=== PATIENT | female | born 1945 | race Hispanic/Latino ===

== ENCOUNTER → 2018-08-22 | Day surgery (SDC) | payer MEDICARE ==
[2018-08-16 14:39] LABS: BASOPHILS % 0.4 % (0.0-1.0); EOSINOPHILS % 0.2 % (0.0-6.0); HEMATOCRIT 34.1 % (34.2-44.1); HEMOGLOBIN 10.8 g/dL (12.0-16.0); LYMPHOCYTES # (AUTO) 1.2 (1.0-3.2); LYMPHOCYTES % 21.4 % (18.0-39.1); MEAN CORPUSCULAR HEMOGLOBIN 30.6 pg (28-32); MEAN CORPUSCULAR HGB CONC 31.7 g/dL (31-35); MEAN CORPUSCULAR VOLUME 96.6 fL (81-99); MONOCYTES # (AUTO) 0.4 (0.2-0.8); MONOCYTES % 7.3 % (4.4-11.3); NEUTROPHILS % 70.3 % (38.7-80.0); PLATELET COUNT 271 x10e3/uL (140-360); RED BLOOD COUNT 3.53 x10e6/uL (3.6-5.1); RED CELL DISTRIBUTION WIDTH 13.4 % (11.7-14.4)
[~2018-08-22] MED LIST: ALIGN PO; ALIGN4 MG PO; ATORVASTATIN CA20 MG PO; FAMOTIDINE20 MG PO; FENTANYL CITRATE/PF 100MCG/2 ML INJ ONE; GLIMEPIRIDE2 MG PO; INVOKANA PO; JANUMET 50-1,01 EACH PO; LEVOTHYROXINE100 MC1 PO; LEVOTHYROXINE75 MCG PO; LISINOPRIL10 MG PO; METFORMIN HCL500 MG PO; METOPROLOL SUCC50 MG PO; OMEPRAZOLE40 MG PO; OXYBUTYNIN CHLOR5 MG PO; PANTOPRAZOLE SO40 MG PO; PROPOFOL IV EMULSION 10 MG/ML 50 ML VIAL ONE
--- OUTSIDE RECORDS SUMMARY | 2018-08-22 06:57 | XMS REPORT | Clinical Summary ---
Author Author Gregory Christian Organization [facility] Address Unknown Phone Unavailable Care Team Providers Care Precision Lens Technician Name Role Phone Roni Delgado MD PCP Allergies Comments Active Allergy Reactions Severity Noted Date dizziness Penicillins Other (See 04/05/2018 Comments) Medications End Date Status Medication Sig Dispensed Refills Start Date Active alendronate (FOSAMAX) 70 Take 70 mg by 0 MG tablet mouth every 7 days. Take in the morning with a full glass of water on an empty stomach, do NOT take anything else by mouth or lie down for the next 30 min. Take on tue or Active atorvastatin (LIPITOR) 40 Take 40 mg by 0 MG tablet mouth nightly. Active esomeprazole (NexIUM) 40 Take 40 mg by 0 MG capsule mouth nightly. Active famotidine (PEPCID) 40 MG Take 40 mg by 0 tablet mouth 2 (two) times a day. Active glimepiride (AMARYL) 4 MG Take 4 mg by 0 tablet mouth 2 (two) times a day. Active canagliflozin (INVOKANA) Take by mouth 0 100 mg tablet tablet daily before breakfast. Active sitaGLIPtin-metformin Take by mouth 0 (JANUMET XR) 50-1,000 mg 2 (two) times tablet, ER multiphase 24 a day. hr Active levothyroxine (SYNTHROID, Take 75 mcg 0 LEVOXYL) 75 mcg tablet by mouth every morning. Active lisinopril Take 10 mg by 0 (PRINIVIL,ZESTRIL) 10 mg mouth daily. tablet Active metoprolol tartrate Take 50 mg by 0 (LOPRESSOR) 50 mg tablet mouth 2 (two) times a day. Active oxybutynin XL Take 10 mg by 0 (DITROPAN-XL) 10 MG 24 hr mouth daily. tablet Active Bifidobacterium infantis Take by mouth 0 (ALIGN ORAL) daily. 05/05/2018 HYDROcodone-acetaminophen Take 1 tablet 0 (NORCO) 5-325 mg per by mouth 8 tablet every 6 (six) hours as needed for severe pain for up to 60 doses. Max Daily Amount: 4 tablets Active Problems Problem Noted Date Preop testing 04/19/2018 Encounters Care Team Description Date Type Specialty Chencho Serrano MD 04/19/2018 Anesthesia General Surgery Event Nataly Dickinson MD ARTHROPLASTY, KNEE, TOTAL 04/19/2018 Surgery General Surgery Nataly Dickinson MD Preop testing 04/19/2018 Hospital General Surgery - Encounter 04/21/2018 Nataly Dickinson MD 04/05/2018 Hospital Radiology Encounter Nataly Dickinson MD Preop testing (Primary Dx) 04/05/2018 Pre-Admit Pre-Admission Testing Testing Appointment after 08/21/2017 Family History Medical History Relation Name Comments Diabetes Father Relation Name Status Comments Father Social History Date Tobacco Use Types Packs/Day Years Used Never Smoker Smokeless Tobacco: Never Used Alcohol Use Drinks/Week oz/Week Comments No Alcohol Habits Answer Date Recorded How often do you have a drink containing alcohol? Never 04/05/2018 How many drinks containing alcohol do you have on Not asked a typical day when you are drinking? How often do you have six or more drinks on one Not asked occasion? Sex Assigned at Date Recorded Not on file Industry Job Start Date Occupation Not on file Not on file Not on file Travel End Travel History Travel Start No recent travel history available. Last Filed Vital Signs Time Taken Vital Sign Reading 04/21/2018 12:38 PM BOWL SANDER Blood Pressure 107/49 04/21/2018 12:38 PM BOWL SANDER Pulse 58 04/21/2018 12:38 PM BOWL SANDER Temperature 36.9 C (98.5 F) 04/21/2018 12:38 PM BOWL SANDER Respiratory Rate 18 04/21/2018 12:38 PM BOWL SANDER Oxygen Saturation 99% - Inhaled Oxygen - Concentration 04/19/2018 6:15 AM BOWL SANDER Weight 55.7 kg (122 lb 12.8 oz) 04/19/2018 6:15 AM BOWL SANDER Height 147.3 cm (4' 10") 04/19/2018 6:15 AM BOWL SANDER Body Mass Index 25.67 Plan of Treatment Health Maintenance Due Date Last Done Comments BREAST CANCER SCREENING 12/21/1993 COLON CANCER SCREENING 12/21/1993 SHINGLES VACCINES (#1) 12/21/1993 65+ PNEUMOCOCCAL VACCINE 12/21/2008 (1 of 2 - PCV13) PNEUMOCOCCAL 12/21/2008 POLYSACCHARIDE VACCINE AGE 65 AND OVER INFLUENZA VACCINE 12/07/2018 Implants Device Identifier Shelf Expiration Date Model / Serial / Lot Implanted Type Area Manufactur er 09/08/2022 [id number] / [id number] / [id number] Tissue Matrix Placental Liquid Human Left: Knee Cryomatrix Size 2.0cc - Tissue [id number] - [id number] Implants Implanted: Qty: 1 on 04/19/2018 by Nataly Dickinson MD 12/08/2025 [id number] / / [id number] Evolutionmp Tibial Keeled Nonpor IPM Left: Knee MICROPORT Size 4 Standard Left - [id number] IMPLANT ORTHOPEDIC Implanted: Qty: 1 on 04/19/2018 by Nataly Ragsdale MD 01/01/2026 [id number] / / [id number] Evolutionmp Femoral Cs/Cr Non-Por IPM Left: Knee MICROPORT Size 4 Primary Left - [id number] IMPLANT ORTHOPEDIC Implanted: Qty: 1 on 04/19/2018 by Nataly Ragsdale MD 09/07/2025 [id number] / / [id number] Evolution Mp Cs Insert Size 4 IPM Left: Knee MICROPORT Standard 10mm Left - [id number] IMPLANT ORTHOPEDIC Implanted: Qty: 1 on 04/19/2018 by Nataly Ragsdale MD 08/29/2025 [id number] / / [id number] Patella Onlay 3peg 32mm Pe Advance Knee Joint Left: Knee MICROPORT - [id number] Implants Implanted: Qty: 1 on 04/19/2018 by Nataly Dickinson MD 06/08/2019 [id number] / / [id number] Cement Bone Gm Hiviscocty 40gr Surgical Left: Knee DEPUY Smartmix - [id number] Bone ORTHO-KNEE Implanted: Qty: 1 on 04/19/2018 by Nataly Partida MD Procedures Comments Procedure Name Priority Date/Time Associated Diagnosis POC GLUCOSE Routine 04/21/2018 12:32 PM BOWL SANDER POC GLUCOSE Routine 04/21/2018 6:02 AM BOWL SANDER HEMOGLOBIN & HEMATOCRIT Routine 04/21/2018 5:27 AM BOWL SANDER POC GLUCOSE Routine 04/20/2018 8:52 PM BOWL SANDER POC GLUCOSE Routine 04/20/2018 4:55 PM BOWL SANDER POC GLUCOSE Routine 04/20/2018 11:47 AM BOWL SANDER POC GLUCOSE Routine 04/20/2018 6:48 AM BOWL SANDER HEMOGLOBIN & HEMATOCRIT Routine 04/20/2018 5:30 AM BOWL SANDER POC GLUCOSE Routine 04/19/2018 8:34 PM BOWL SANDER POC GLUCOSE Routine 04/19/2018 4:29 PM BOWL SANDER POC GLUCOSE Routine 04/19/2018 1:54 PM BOWL SANDER XR KNEE 1 OR 2 VW LEFT Routine 04/19/2018 1:30 PM BOWL SANDER URINALYSIS SCREEN AND Timed 04/19/2018 MICROSCOPY, WITH REFLEX 9:27 AM BOWL SANDER TO CULTURE URINE CULTURE Timed 04/19/2018 9:27 AM BOWL SANDER WA AN PERIPHERAL BLOCK Routine 04/19/2018 POST-OP PAIN 9:21 AM BOWL SANDER Procedure Note - Chencho Serrano MD - 04/19/2018 9:21 AM BOWL SANDER Peripheral Block Performed by: Chencho Serrano MD Authorized by: Chencho Serrano MD Patient Location: Holding area Start Time: 04/19/2018 8:04 AM End Time: 04/19/2018 8:10 AM Reason for Block: post-op pain management Staff: Anesthesio logist: Chencho Serrano MD Performed by: Anesthesio logist Preprocedu re: patient identified , IV checked, site and side verified, risks and benefits discussed, procedure verified, surgical consent complete, patient position confirmed, monitors and equipment checked, pre-op evaluation complete, site marked and coagulatio n status reviewed Time Out Performed: 8 8:04 AM Peripheral Nerve Block: Patient Position: Supine Prep: ChloraPrep Monitoring : Blood pressure monitoring , continuous pulse oximetry and heart rate Block Type: Femoral Laterality : Left Injection Technique: Single injection Procedures : nerve stimulator Local Infiltrati on (See MAR for details): Bupivacain e Needle: Needle Type: Short-beve l Needle Gauge: 22 G Needle Length: 2 in Assessment : Injection Assessment : Intermitte nt aspiration during local anesthetic administra tion and no symptoms of intraneura l/intraven ous injection Paresthesi a Pain: None Heart Rate Change: No Slow Fractionat ed Injection: Yes Block outcome: Patient tolerated procedure well Notes: 25 cc .025% bupivacain e w/ 1:200 K Epi injected SURGICAL PATHOLOGY Routine 04/19/2018 REQUEST 9:12 AM BOWL SANDER WA AN ELECTIVE Routine 04/19/2018 ENDOTRACHEAL AIRWAY 8:53 AM BOWL SANDER Procedure Note - Chencho Serrano MD - 04/19/2018 8:53 AM BOWL SANDER ANESTHESIA INTUBATION Performed by: Chencho Serrano MD Authorized by: Chencho Serrano MD Location: OR Urgency: Elective Difficult Airway: No Anesthesio logist: Chencho Serrano MD Performed by: anesthesio logist Preoxygena renetta with 100% O2: Yes C-spine Precaution s Maintained Throughout : Yes Mask Ventilatio n: Easy mask Final Airway Type: Endotrache al airway Final Endotrache al Airway: ETT Technique Used: Direct laryngosco py Insertion Site: Oral Blade Type: Katz Laryngosco pe Blade/Vide olaryngosc ope Blade Size: 2 ETT Size (mm): 7.0 Measured from: Lips ETT to Lips (cm): 22 Placement Verified by: CO2 detection, direct visualizat ion and equal breath sounds Laryngosco pic view: Grade I - full view of glottis Rapid Sequence Induction (RSI): No Modified RSI: No Number of Attempts at Approach: 1 ARTHROPLASTY, KNEE, TOTAL 04/19/2018 LEFT KNEE OSTEOARTHRITIS 8:00 AM BOWL SANDER Special Needs MICROPORT, EXPARELDav id with Microport notified of case scheduled 04/19 0800 MW. ESTIMATED GFR STAT 04/19/2018 6:40 AM BOWL SANDER BASIC METABOLIC PANEL STAT 04/19/2018 6:40 AM BOWL SANDER HC COMPLETE BLD COUNT STAT 04/19/2018 W/AUTO DIFF 6:40 AM BOWL SANDER URINALYSIS SCREEN AND STAT 04/19/2018 MICROSCOPY, WITH REFLEX 6:22 AM BOWL SANDER TO CULTURE URINE CULTURE STAT 04/19/2018 6:03 AM BOWL SANDER GRAM STAIN STAT 04/19/2018 6:03 AM BOWL SANDER TYPE AND SCREEN Routine 04/12/2018 Preop testing 3:00 PM BOWL SANDER XR CHEST 2 VW Routine 04/05/2018 Preop testing 6:23 PM BOWL SANDER URINALYSIS SCREEN AND Routine 04/05/2018 Preop testing MICROSCOPY, WITH REFLEX 4:59 PM BOWL SANDER TO CULTURE URINE CULTURE Routine 04/05/2018 4:59 PM BOWL SANDER GRAM STAIN Routine 04/05/2018 4:59 PM BOWL SANDER ESTIMATED GFR Routine 04/05/2018 4:58 PM BOWL SANDER SEDIMENTATION RATE Routine 04/05/2018 Preop testing 4:58 PM BOWL SANDER BASIC METABOLIC PANEL Routine 04/05/2018 Preop testing 4:58 PM BOWL SANDER PARTIAL THROMBOPLASTIN Routine 04/05/2018 Preop testing TIME (PTT) 4:58 PM BOWL SANDER PROTHROMBIN TIME WITH INR Routine 04/05/2018 Preop testing 4:58 PM BOWL SANDER HC COMPLETE BLD COUNT Routine 04/05/2018 Preop testing W/AUTO DIFF 4:58 PM BOWL SANDER MRSA SCREEN CULTURE Routine 04/05/2018 Preop testing 4:58 PM BOWL SANDER ECG 12-LEAD Routine 04/05/2018 Preop testing 4:57 PM BOWL SANDER after 08/21/2017 Results * POC glucose (04/21/2018 12:32 PM BOWL SANDER) Only the most recent of 9 results within the time period is included. POC glucose 260 (H) 65 - 99 mg/dL [facility] Comment: [facility] Meter ID: [id number] Water Resource Specialist: Andres Alvarez Performing Organization Address [facility] Phone Number [address] [place] [address] PATHOLOGY AND GENOMIC MEDICINE [address] * Hemoglobin & hematocrit (04/21/2018 5:27 AM BOWL SANDER) Only the most recent of 2 results within the time period is included. HGB 10.0 (L) 12.0 - 16.0 g/dL [facility] HCT 30.9 (L) 37.0 - 47.0 % [facility] Specimen Blood Performing Organization Address [facility] Phone Number [address] [place] [address] PATHOLOGY AND GENOMIC MEDICINE [address] * XR Knee 1 Or 2 Vw Left (04/19/2018 1:30 PM BOWL SANDER) Narrative Performed At EXAMINATION: XR KNEE 1 OR 2 VW LEFT [facility] INDICATION: total knee arthoplasty COMPARISON: None IMPRESSION: 2 views of the left knee were obtained which demonstrate expected postoperative changes following total knee arthroplasty with appropriate implant alignment. [facility]-[id number] Procedure Note Hm Interface, Radiology Results Incoming - 04/19/2018 3:25 PM BOWL SANDER EXAMINATION: XR KNEE 1 OR 2 VW LEFT INDICATION: total knee arthoplasty COMPARISON: None IMPRESSION: 2 views of the left knee were obtained which demonstrate expected postoperative changes following total knee arthroplasty with appropriate implant alignment. [facility]-[id number] Performing Organization Address City/[facility] Phone Number [facility] [address] [place] [address] * Urinalysis screen and microscopy, with reflex to culture (04/19/2018 9:27 AM BOWL SANDER) Only the most recent of 3 results within the time period is included. Specimen site Mora [facility] Color, UA Straw [facility] Appearance, UA Clear [facility] Specific gravity, UA 1.011 1.001 - 1.035 [facility] pH, UA 5.0 5.0 - 8.5 [facility] Protein, UA Negative Negative [facility] Glucose, UA 3+ (A) Negative [facility] Ketones, UA Trace (A) Negative [facility] Bilirubin, UA Negative Negative [facility] Blood, UA Negative Negative [facility] Nitrite, UA Negative Negative [facility] Urobilinogen, UA Negative <2.0 [facility] Leukocyte esterase, UA Negative Negative [facility] WBC, UA 0-5 0 - 4 /HPF [facility] RBC, UA 0-5 0 - 5 /HPF [facility] Bacteria, UA None seen None seen [facility] Yeast, UA None seen [facility] Yeast with pseudohyphae, None seen [facility] Specimen Urine - Urine, catheter Performing Organization Address [facility] Phone Number [address] [place] [address] PATHOLOGY AND GENOMIC MEDICINE [address] * Urine culture (04/19/2018 9:27 AM BOWL SANDER) Only the most recent of 3 results within the time period is included. Urine culture SEE COMMENTComment: [facility] Bacteriuria screen negative. [facility] Specimen Urine Performing Organization Address [facility] Phone Number [address] [place] [address] PATHOLOGY AND GENOMIC MEDICINE [address] * Surgical pathology request (04/19/2018 9:12 AM BOWL SANDER) [facility] DEPARTMENT OF PATHOLOGY AND GENOMIC MEDICINE Surgical pathology report See link below for PDF Lab [facility] DEPARTMENT OF Report PATHOLOGY AND GENOMIC MEDICINE Result status This is Final Report for [facility] DEPARTMENT OF [id number] PATHOLOGY AND GENOMIC MEDICINE Performing Organization Address [facility] Phone Number [address] [place] [address] PATHOLOGY AND GENOMIC MEDICINE * Estimated GFR (04/19/2018 6:40 AM BOWL SANDER) Only the most recent of 2 results within the time period is included. Estimated GFR 72 mL/min/1.73 m2 [facility] Comment: [facility] CatergoryUnitsInte rpretation G1 >=90 Normal or high G2 60-89Mildly decreased W8s83-72 Mildly to moderately decreased L6p90-47 Moderately to severely decreased G4 15-29Severely decreased G5 <15Kidney failure The eGFR was calculated using the Chronic Kidney Disease Epidemiology Collaboration (CKD-EPI) equation. Interpretation is based on recommendations of the National Kidney Foundation-Kidney Disease Outcomes Quality Initiative (NKF-KDOQI) published in 2014. Specimen Plasma specimen Performing Organization Address City/State/Zipcode [place] [address] [place] [address] PATHOLOGY AND GENOMIC MEDICINE [facility] [address] [address] * CBC with platelet and differential (04/19/2018 6:40 AM BOWL SANDER) Only the most recent of 2 results within the time period is included. WBC 6.63 4.50 - 11.00 k/uL [facility] RBC 3.60 (L) 4.20 - 5.50 m/uL [facility] HGB 11.6 (L) 12.0 - 16.0 g/dL [facility] HCT 34.8 (L) 37.0 - 47.0 % [facility] MCV 96.7 82.0 - 100.0 fL [facility] MCH 32.2 27.0 - 34.0 pg [facility] MCHC 33.3 31.0 - 37.0 g/dL [facility] RDW - SD 46.4 37.0 - 55.0 fL [facility] MPV 10.5 8.8 - 13.2 fL [facility] Platelet count 246 150 - 400 k/uL [facility] Neutrophils 76.4 (H) 39.0 - 69.0 % [facility] Lymphocytes 18.4 (L) 25.0 - 45.0 % [facility] Monocytes 4.4 0.0 - 10.0 % [facility] Eosinophils 0.2 0.0 - 5.0 % [facility] Basophils 0.3 0.0 - 1.0 % [facility] Specimen Blood Performing Organization Address City/[facility] Cent[facility] Phone Number [address] [place] [address] PATHOLOGY AND GENOMIC MEDICINE [address] * Basic metabolic panel (04/19/2018 6:40 AM BOWL SANDER) Only the most recent of 2 results within the time period is included. Sodium 138 135 - 148 mEq/L [facility] Potassium 4.7 3.5 - 5.0 mEq/L [facility] Chloride 101 98 - 112 mEq/L [facility] CO2 27 24 - 31 mEq/L [facility] Anion gap 10@ANIO 7 - 15 mEq/L [facility] BUN 24 (H) 8 - 23 mg/dL [facility] Creatinine 0.80 0.50 - 0.90 mg/dL [facility] Glucose 135 (H) 65 - 99 mg/dL [facility] Calcium 9.5 8.8 - 10.2 mg/dL [facility] Specimen Plasma specimen Performing Organization Address [facility] Phone Number [address] [place] [address] PATHOLOGY AND GENOMIC MEDICINE [address] * Gram stain (04/19/2018 6:03 AM BOWL SANDER) Only the most recent of 2 results within the time period is included. Gram stain result Rare WBC's [facility] Rare Gram positive cocci in HOSPITAL pairs Comment: Specimen Information Specimen Source: Urine Specimen Site: Clean catch Specimen Urine Performing Organization Address City/State/Zipcode Phone Number [facility] [place] [address] PATHOLOGY AND GENOMIC MEDICINE [address] * Type and screen (04/12/2018 3:00 PM BOWL SANDER) ABO grouping O [facility] Rh type POS [facility] Antibody screen NEG [facility] Specimen Blood Performing Organization Address [facility] Phone Number [facility] DEPARTMENT OF [address] [place] [address] [place] [address] PATHOLOGY AND GENOMIC MEDICINE [address] [place] [address] [facility] * XR Chest 2 Vw (04/05/2018 6:23 PM BOWL SANDER) Narrative Performed At EXAMINATION:[facility]:Z01.818 Encounter for other preprocedural examination, preop COMPARISON:None IMPRESSION: 1. The heart and pulmonary vasculature are within normal limits. 2. No infiltrate or effusion is demonstrated. 3. There is no acute osseous pathology. Right posterior rib fractures appear old and chronic. Surgical clips are present within the left axilla. CONCLUSION: NO RADIOGRAPHIC EVIDENCE OF ACUTE CARDIOPULMONARY ABNORMALITY. [facility]-[id number] Procedure Note Interface, Radiology Results Incoming - 04/05/2018 6:28 PM BOWL SANDER EXAMINATION: XR CHEST 2 VW CLINICAL HISTORY: Z01.818 Encounter for other preprocedural examination, preop COMPARISON: None IMPRESSION: 1. The heart and pulmonary vasculature are within normal limits. 2. No infiltrate or effusion is demonstrated. 3. There is no acute osseous pathology. Right posterior rib fractures appear old and chronic. Surgical clips are present within the left axilla. CONCLUSION: NO RADIOGRAPHIC EVIDENCE OF ACUTE CARDIOPULMONARY ABNORMALITY. [facility]-[id number] Performing Organization Address [facility] Cent[facility]ode Phone Number [facility] [address] [place] [address] * Partial thromboplastin time, activated (04/05/2018 4:58 PM BOWL SANDER) PTT 30.1 23.0 - 36.0 sec [facility] Comment: [facility] PTT therapeutic range for unfractionated heparin is 61.0-112.0 seconds which corresponds to Anti-Xa 0.3-0.7 U/ml. Specimen Blood Performing Organization Address [facility]/Zipcode Phone Number [facility] DEPARTMENT OF [address] [place] [address] [place] [address] PATHOLOGY AND GENOMIC MEDICINE [address] * Sedimentation rate (04/05/2018 4:58 PM BOWL SANDER) Sedimentation rate 35 (H) 0 - 20 mm/hr [facility] Specimen Blood Performing Organization Address City/[facility] Cent[facility]ode Phone Number [facility] DEPARTMENT [address] [place] [address] PATHOLOGY AND GENOMIC MEDICINE [address] * Prothrombin time with INR (04/05/2018 4:58 PM BOWL SANDER) Prothrombin time 13.6 11.5 - 14.5 sec [facility] INR 1.1 [facility] Comment: [facility] The International Normalized Ratio (INR) is a therapeutic monitoring tool for patients who are stable on oral anticoagulant therapy. An INR of 2.0-3.0 is suggested for deep vein thrombosis/pulmonary embolism. Specimen Blood Performing Organization Address [facility] Phone Number [address] [place] [address] PATHOLOGY AND GENOMIC MEDICINE [address] * MRSA screen culture (04/05/2018 4:58 PM BOWL SANDER) MRSA screen culture No Methicillin Resistant [facility] isolate Staphylococcus aureus HOSPITAL isolated. Comment: Specimen Information Specimen Source: Nares Specimen Site: Not specified Specimen Nares - Not specified Performing Organization Address [facility] Centercode Phone Number [facility] [place] [address] PATHOLOGY AND GENOMIC MEDICINE [address] * ECG 12 lead (04/05/2018 4:57 PM BOWL SANDER) Ventricular rate 55 [facility] Atrial rate 55 [facility] WA interval 180 [facility] QRSD interval 94 [facility] QT interval 440 [facility] QTC interval 420 [facility] P axis 1 34 [facility] QRS axis 1 25 [facility] T wave axis 50 [facility] EKG impression Normal sinus rhythm-Abnormal [facility] ECG-No previous ECGs available- Narrative Performed At Performing Organization Address City/State/Zipcode Phone Number [facility] MUSE [address] [place] [address] after 08/21/2017 Insurance Payer Benefit Subscriber ID Type Phone Address Plan / Group [employer] TEX[employer]US xxxxxxxxx O [facility] Advance Directives Patient has advance care planning documents, and code status on file. For more i nformation, please contact: Colt George [address] [place] [address] Date Inactivated Comments Code Status Date Activated 04/21/2018 9:25 PM Full Code 04/19/2018 1:16 PM Code Status decision reached by: Patient
--- OUTSIDE RECORDS SUMMARY | 2018-08-22 06:57 | XMS REPORT ---
[facility] Address Unknown Phone Unavailable Care Team Providers Care Trial Paralegal Name Role Phone Unavailable Unavailable Payers Payer Name Policy Type Policy Number Effective Date Expiration Date Problems This patient has no known problems. Allergies, Adverse Reactions, Alerts Allergy Name Allergy Type Status Severity Reaction(s) Onset Date Inactive Date Treating Clinician Comments No Known Allergies DA Active U 2018-02-12 00:00:00 No Known Allergies DA Active U 2017-12-21 00:00:00 Medications This patient has no known medications.
[2018-08-22 12:20] VITALS: BP 100/64
== END | disposition home or self-care (01) ==
LOC: OR 06:54
PROVIDERS: ATTEND Internal Medicine Gastroenterology
DX: K29.70 Gastritis, unspecified, without bleeding (principal); K31.89 Other diseases of stomach and duodenum; K21.9 Gastro-esophageal reflux disease without esophagitis; K44.9 Diaphragmatic hernia without obstruction or gangrene; R63.4 Abnormal weight loss; I10 Essential (primary) hypertension; E03.9 Hypothyroidism, unspecified; E11.9 Type 2 diabetes mellitus without complications; R01.1 Cardiac murmur, unspecified; M19.90 Unspecified osteoarthritis, unspecified site; Z88.0 Allergy status to penicillin; Z79.84 Long term (current) use of oral hypoglycemic drugs; Z85.3 Personal history of malignant neoplasm of breast
CPT/HCPCS: 36415 ×2; 43239; 82948; 85025; 93005; J2704

== ENCOUNTER → 2020-02-29 | Day surgery (SDC) | payer MEDICARE, OTHER ==
[2020-02-27 14:55] LABS: BASOPHILS % 0.4 % (0.0-1.0); HEMATOCRIT 31.4 % (34.2-44.1); LYMPHOCYTES # (AUTO) 1.1 (1.0-3.2); MEAN CORPUSCULAR HEMOGLOBIN 30.8 pg (28-32); MEAN CORPUSCULAR HGB CONC 31.8 g/dL (31-35); MEAN CORPUSCULAR VOLUME 96.6 fL (81-99); MONOCYTES # (AUTO) 0.3 (0.2-0.8); MONOCYTES % 5.9 % (4.4-11.3); NEUTROPHILS # (AUTO) 4.1 (2.1-6.9); NEUTROPHILS % 73.3 % (38.7-80.0); PLATELET COUNT 235 x10e3/uL (140-360); RED BLOOD COUNT 3.25 x10e6/uL (3.6-5.1); RED CELL DISTRIBUTION WIDTH 12.8 % (11.7-14.4)
--- NOTE | 2020-02-27 15:16 | Diagnostic Imaging Report ---
TECHNIQUE: Frontal and lateral views of the chest. INDICATION: ^PRE -OP COMPARISON: None. IMPRESSION: Lines and hardware: None. Heart and mediastinum: Tortuous aorta. Otherwise, unremarkable cardiomediastinal silhouette. Lungs and pleura: Mild pulmonary vascular congestion. No focal airspace consolidation. No pleural effusion. No pneumothorax. Soft tissues and bones: Lower thoracic likely old vertebral body fracture; correlate with physical exam. Left axillary surgical clips. Signed by: Smith Last MD on 02/27/2020 3:13 PM
[2020-02-27 15:28] LABS: ALBUMIN 3.5 g/dL (3.5-5.0); ALBUMIN/GLOBULIN RATIO 1.3 (0.8-2.0); ANION GAP 13.6 mmol/L (8-16); CALCIUM 9.4 mg/dL (8.4-10.2); CREATININE, SERUM 0.95 mg/dL (0.57-1.11); POTASSIUM 4.6 mmol/L (3.5-5.1)
[~2020-02-29] MED LIST changes: +BUPIVACAINE HCL 0.5% INJ 30 ML VIAL INJ ONE; -FENTANYL CITRATE/PF 100MCG/2 ML INJ ONE; +JANUMET XR 1001 EACH PO; +LIDOCAINE 1% W/EPINEPHRINE 20 ML VIAL ONE; +LIDOCAINE HCL 2% LOCAL INJ 5 ML SDV VIAL INJ ONE; +ONDANSETRON HCL INJ 2MG/ML 2ML 2 MG/ML VIAL ONE; +PROBIOTIC & AC1 EACH PO; +PROPOFOL IV EMULSION 10 MG/ML 20 ML VIAL ONE; -PROPOFOL IV EMULSION 10 MG/ML 50 ML VIAL ONE; +SEVOFLURANE INHAL SOLN 250 ML PEN BTL ONE
--- NOTE | 2020-02-29 12:00 | Operative Report ---
DATE OF PROCEDURE: 02/29/2020 SURGEON: Osvaldo Blankenship MD PREOPERATIVE DIAGNOSIS: Left breast mass, rule out malignancy. POSTOPERATIVE DIAGNOSIS: Left breast mass, rule out malignancy. OPERATION PERFORMED: Left partial mastectomy. ANESTHESIA: General. COMPLICATIONS: None. ESTIMATED BLOOD LOSS: Minimal. DESCRIPTION OF PROCEDURE: With the patient lying in bed in the supine position under good general anesthesia, the left breast was prepped with Betadine solution and draped in the usual manner. The area overlying the mass in the medial aspect of the left breast near the sternum was then infiltrated with 0.25% Marcaine and 1% lidocaine. An incision was made immediately under the skin. A hard almost calcified type of mass was encountered, which was slowly and carefully from all the surrounding structures and totally and completely removed and sent for pathological examination. The whole area was thoroughly irrigated. Perfect hemostasis was ascertained. The breast tissue was then reapproximated with 2-0 chromic and the skin was closed with subcuticular 5-0 Vicryl. Benzoin, Steri-Strips and dressings were applied. The sponge, lap, and needle count was correct. The patient tolerated the procedure well and returned to the recovery room in stable condition. MD NOY Villafana/PAMELAL /[id number]
[2020-02-29 13:05] VITALS: BP 147/71
== END | disposition home or self-care (01) ==
LOC: OR 07:01
PROVIDERS: ATTEND Surgery
DX: N63.0 Unspecified lump in unspecified breast (principal); E11.9 Type 2 diabetes mellitus without complications; I10 Essential (primary) hypertension; Z88.0 Allergy status to penicillin; Z01.810 Encounter for preprocedural cardiovascular examination; Z01.812 Encounter for preprocedural laboratory examination; Z01.818 Encounter for other preprocedural examination; Z11.59 Encounter for screening for other viral diseases; Z79.84 Long term (current) use of oral hypoglycemic drugs
CPT/HCPCS: 19301; 36415 ×2; 71046; 80053; 82948; 85025; 88305; 88311; 93005; J2001; J2405; J2704; U0002

== ENCOUNTER 2021-12-11 06:04 | Inpatient (IN) | payer MEDICARE ==
[~2021-12-11] VITALS: Ht 149.9 cm; Wt 58.1 kg
[~2021-12-11 06:04] MED LIST changes: -BUPIVACAINE HCL 0.5% INJ 30 ML VIAL INJ ONE; -LIDOCAINE 1% W/EPINEPHRINE 20 ML VIAL ONE; -LIDOCAINE HCL 2% LOCAL INJ 5 ML SDV VIAL INJ ONE; -ONDANSETRON HCL INJ 2MG/ML 2ML 2 MG/ML VIAL ONE; -PROPOFOL IV EMULSION 10 MG/ML 20 ML VIAL ONE; -SEVOFLURANE INHAL SOLN 250 ML PEN BTL ONE
[2021-12-11] MEDS ORDERED: ONDANSETRON HCL INJ 2MG/ML 2ML 2 MG/ML VIAL IV STA (06:32)
[2021-12-11] MEDS ORDERED: Morphine 4mg INJECTION 4 MG/ML INJ IV ONE (06:45)
[2021-12-11 06:56] LABS: HEMATOCRIT 31.1 % (34.2-44.1); HEMOGLOBIN 10.1 g/dL (12.0-16.0); LYMPHOCYTES # (AUTO) 0.8 (1.0-3.2); LYMPHOCYTES % 10.3 % (18.0-39.1); MEAN CORPUSCULAR HEMOGLOBIN 31.8 pg (28-32); MEAN CORPUSCULAR HGB CONC 32.5 g/dL (31-35); MEAN CORPUSCULAR VOLUME 97.8 fL (81-99); MONOCYTES # (AUTO) 0.3 (0.2-0.8); MONOCYTES % 3.1 % (4.4-11.3); NEUTROPHILS # (AUTO) 6.8 (2.1-6.9); PLATELET COUNT 434 x10e3/uL (140-360); RED BLOOD COUNT 3.18 x10e6/uL (3.6-5.1); RED CELL DISTRIBUTION WIDTH 13.2 % (11.7-14.4)
[2021-12-11] MEDS ORDERED: FEROSUL325 MG PO (07:21)
[2021-12-11] MEDS ORDERED: LOPRESSOR25 MG PO (07:21)
[2021-12-11] MEDS ORDERED: METHYLPREDNISOLO4 M1 (07:21)
[2021-12-11] MEDS ORDERED: HYDROCODON-ACE1 EA11 PO (07:21)
[2021-12-11] MEDS ORDERED: CETIRIZINE HCL10 MG PO (07:21)
[2021-12-11] MEDS ORDERED: B12 ACTIVE1000 MCG PO (07:21)
[2021-12-11] MEDS ORDERED: JANUMET 50-1,01 EACH (07:21)
[2021-12-11 07:23] LABS: ALBUMIN 3.5 g/dL (3.5-5.0); ALBUMIN/GLOBULIN RATIO 0.9 (0.8-2.0); ANION GAP 13.8 mmol/L (8-16); CALCIUM 8.9 mg/dL (8.4-10.2); CREATININE, SERUM 0.77 mg/dL (0.57-1.11); POTASSIUM 4.8 mmol/L (3.5-5.1)
[2021-12-11 07:56] LABS: CLARITY,URINE CLEAR (CLEAR); COLOR,URINE YELLOW (YELLOW)
[2021-12-11 07:57] LABS: KETONES,URINE 1+ (NEGATIVE); LEUKOCYTE ESTERASE ,URINE NEGATIVE (NEGATIVE); NITRITE,URINE NEGATIVE (NEGATIVE); PROTEIN,URINE DIPSTICK 2+ (NEGATIVE); URINE UROBILINOGEN 0.2 mg/dL (0.2 - 1)
[2021-12-11 08:14] LABS: RBC,URINE 0-5 /HPF (0-5)
[2021-12-11 08:15] LABS: EPITHELIAL CELLS,URINE FEW /LPF; MUCUS,URINE MANY (RARE)
[2021-12-11 08:18] LABS: BACTERIA,URINE MODERATE /HPF; RENAL EPITHELIAL CELLS,URINE RARE
[2021-12-11 08:19] LABS: HYALINE CASTS 0-1 (0-1)
[2021-12-11] MEDS ORDERED: CEFTRIAXONE 1 GM VIAL IV ONE (08:45)
[2021-12-11 12:09] VITALS: BP 169/70
[2021-12-11] MEDS: ONDANSETRON HCL INJ 2MG/ML 2ML 2 MG/ML VIAL IV PRN ×2 (12:50→21:45)
[2021-12-11] MEDS: Morphine 4mg INJECTION 4 MG/ML INJ IV PRN ×2 (12:50→21:45)
[2021-12-11 13:00] VITALS: BP 169/70
[2021-12-11 15:41] VITALS: BP 136/57
[2021-12-11] MEDS ORDERED: DEXTROSE 50% SYRINGE 50 ML IV PRN (16:30)
[2021-12-11] MEDS: HYDROCODONE/APAP 5MG-325MG TAB PO PRN (17:15)
[2021-12-11] MEDS: GLIMEPIRIDE 2 MG TAB PO SCH (17:15)
[2021-12-11] MEDS: METOPROLOL TARTRATE 25 MG TAB PO SCH (17:16)
[2021-12-11] MEDS: INSULIN LISPRO 100 UNIT/1 ML 3ML VIAL SQ SCH ×2 (17:20→21:47)
[2021-12-11 20:00] VITALS: BP 104/83
[2021-12-11] MEDS: ATORVASTATIN 40 MG TAB PO SCH (21:44)
[2021-12-12] VITALS (7 sets, daily range): BP systolic 119–176; BP diastolic 47–153
[2021-12-12] MEDS: LEVOTHYROXINE SODIUM 75 MCG TAB PO SCH (06:07)
[2021-12-12] MEDS: INSULIN LISPRO 100 UNIT/1 ML 3ML VIAL SQ SCH ×4 (07:20→21:00)
[2021-12-12] MEDS: GLIMEPIRIDE 2 MG TAB PO SCH ×2 (08:10→17:35)
[2021-12-12] MEDS: FERROUS SULFATE 325 MG TAB PO SCH (09:50)
[2021-12-12] MEDS: GABAPENTIN 100 MG CAP PO SCH ×3 (09:50→20:31)
[2021-12-12] MEDS: LISINOPRIL 10 MG TAB PO SCH (09:50)
[2021-12-12] MEDS: METOPROLOL TARTRATE 25 MG TAB PO SCH ×2 (09:50→17:45)
[2021-12-12] MEDS: Morphine 4mg INJECTION 4 MG/ML INJ IV PRN (11:20)
[2021-12-12] MEDS ORDERED: SODIUM CHLORIDE 0.9% 500ML 500 ML ONE (14:50)
[2021-12-12] MEDS: TRAZODONE HCL 50 MG TAB PO SCH (20:31)
[2021-12-12] MEDS: ATORVASTATIN 40 MG TAB PO SCH (20:31)
[2021-12-13] VITALS (8 sets, daily range): BP systolic 107–138; BP diastolic 44–64
[2021-12-13] MEDS: LEVOTHYROXINE SODIUM 75 MCG TAB PO SCH (05:04)
[2021-12-13] MEDS: GABAPENTIN 100 MG CAP PO SCH ×3 (09:56→20:35)
[2021-12-13] MEDS: HYDROCODONE/APAP 5MG-325MG TAB PO PRN (09:56)
[2021-12-13] MEDS: GLIMEPIRIDE 2 MG TAB PO SCH ×2 (09:57→17:40)
[2021-12-13] MEDS: LISINOPRIL 10 MG TAB PO SCH (09:58)
[2021-12-13] MEDS: FERROUS SULFATE 325 MG TAB PO SCH (10:03)
[2021-12-13] MEDS: METOPROLOL TARTRATE 25 MG TAB PO SCH ×2 (10:03→17:40)
[2021-12-13] MEDS: TRAZODONE HCL 50 MG TAB PO SCH (20:35)
[2021-12-13] MEDS: ATORVASTATIN 40 MG TAB PO SCH (20:35)
[2021-12-13] MEDS: INSULIN LISPRO 100 UNIT/1 ML 3ML VIAL SQ SCH ×2 (20:37→21:00)
[2021-12-14] VITALS (9 sets, daily range): BP systolic 133–150; BP diastolic 52–68
[2021-12-14 05:30] LABS: BASOPHILS % 0.1 % (0.0-1.0); EOSINOPHILS % 0.1 % (0.0-6.0); HEMATOCRIT 28.9 % (34.2-44.1); HEMOGLOBIN 9.6 g/dL (12.0-16.0); LYMPHOCYTES # (AUTO) 1.5 (1.0-3.2); LYMPHOCYTES % 20.2 % (18.0-39.1); MEAN CORPUSCULAR HEMOGLOBIN 31.8 pg (28-32); MEAN CORPUSCULAR HGB CONC 33.2 g/dL (31-35); MEAN CORPUSCULAR VOLUME 95.7 fL (81-99); MONOCYTES # (AUTO) 0.6 (0.2-0.8); MONOCYTES % 7.2 % (4.4-11.3); NEUTROPHILS # (AUTO) 5.5 (2.1-6.9); NEUTROPHILS % 71.9 % (38.7-80.0); PLATELET COUNT 395 x10e3/uL (140-360); RED BLOOD COUNT 3.02 x10e6/uL (3.6-5.1); RED CELL DISTRIBUTION WIDTH 13.9 % (11.7-14.4)
[2021-12-14 06:00] LABS: ANION GAP 14.3 mmol/L (8-16); CALCIUM 8.3 mg/dL (8.4-10.2); CREATININE, SERUM 0.77 mg/dL (0.57-1.11); POTASSIUM 4.3 mmol/L (3.5-5.1)
[2021-12-14] MEDS: LEVOTHYROXINE SODIUM 75 MCG TAB PO SCH (06:09)
[2021-12-14] MEDS: INSULIN LISPRO 100 UNIT/1 ML 3ML VIAL SQ SCH ×4 (08:44→20:42)
[2021-12-14] MEDS: FERROUS SULFATE 325 MG TAB PO SCH (08:45)
[2021-12-14] MEDS: METFORMIN HCL 500 MG TAB PO SCH ×2 (08:45→17:16)
[2021-12-14] MEDS: GLIMEPIRIDE 2 MG TAB PO SCH ×2 (08:45→17:15)
[2021-12-14] MEDS: SITAGLIPTIN 100 MG TAB PO SCH ×2 (08:45→17:16)
[2021-12-14] MEDS: GABAPENTIN 100 MG CAP PO SCH ×3 (08:46→20:37)
[2021-12-14] MEDS: METOPROLOL TARTRATE 25 MG TAB PO SCH ×2 (08:46→17:18)
[2021-12-14] MEDS: LISINOPRIL 10 MG TAB PO SCH (08:47)
[2021-12-14] MEDS ORDERED: NON-FORMULARY MEDICATION (Sitagliptin Phos/Metformin Hcl (Janumet 50-1,000 Mg Tablet) 1 TA SCH (09:00)
[2021-12-14] MEDS: ATORVASTATIN 40 MG TAB PO SCH (20:36)
[2021-12-14] MEDS: TRAZODONE HCL 50 MG TAB PO SCH (20:36)
[2021-12-14] MEDS: HYDROCODONE/APAP 5MG-325MG TAB PO PRN (20:37)
[2021-12-15] VITALS (7 sets, daily range): BP systolic 112–152; BP diastolic 41–54
[2021-12-15] MEDS: LEVOTHYROXINE SODIUM 75 MCG TAB PO SCH (05:56)
[2021-12-15] MEDS: INSULIN LISPRO 100 UNIT/1 ML 3ML VIAL SQ SCH ×4 (07:30→21:00)
[2021-12-15] MEDS: GLIMEPIRIDE 2 MG TAB PO SCH ×2 (09:03→18:05)
[2021-12-15] MEDS: METFORMIN HCL 500 MG TAB PO SCH ×2 (09:03→18:05)
[2021-12-15] MEDS: LISINOPRIL 10 MG TAB PO SCH (09:04)
[2021-12-15] MEDS: SITAGLIPTIN 100 MG TAB PO SCH ×2 (09:04→18:05)
[2021-12-15] MEDS: GABAPENTIN 100 MG CAP PO SCH ×3 (09:05→21:38)
[2021-12-15] MEDS: FERROUS SULFATE 325 MG TAB PO SCH (09:05)
[2021-12-15] MEDS: METOPROLOL TARTRATE 25 MG TAB PO SCH ×2 (09:05→18:06)
[2021-12-15] MEDS: HYDROCODONE/APAP 5MG-325MG TAB PO PRN ×2 (09:09→18:11)
[2021-12-15] MEDS: TRAZODONE HCL 50 MG TAB PO SCH (21:38)
[2021-12-15] MEDS: ATORVASTATIN 40 MG TAB PO SCH (21:38)
[2021-12-16] VITALS (7 sets, daily range): BP systolic 114–150; BP diastolic 46–60
[2021-12-16] MEDS: LEVOTHYROXINE SODIUM 75 MCG TAB PO SCH (06:05)
[2021-12-16] MEDS: INSULIN LISPRO 100 UNIT/1 ML 3ML VIAL SQ SCH ×4 (07:30→22:27)
[2021-12-16] MEDS: GABAPENTIN 100 MG CAP PO SCH ×3 (08:45→22:21)
[2021-12-16] MEDS: FERROUS SULFATE 325 MG TAB PO SCH (08:46)
[2021-12-16] MEDS: GLIMEPIRIDE 2 MG TAB PO SCH ×2 (08:46→17:33)
[2021-12-16] MEDS: METOPROLOL TARTRATE 25 MG TAB PO SCH ×2 (08:54→17:00)
[2021-12-16] MEDS: SITAGLIPTIN 100 MG TAB PO SCH ×2 (08:55→17:31)
[2021-12-16] MEDS: METFORMIN HCL 500 MG TAB PO SCH ×2 (08:56→17:30)
[2021-12-16] MEDS: LISINOPRIL 10 MG TAB PO SCH (08:56)
[2021-12-16] MEDS: TRAMADOL HCL 50 MG TAB PO PRN ×2 (10:16→18:25)
[2021-12-16] MEDS: TRAZODONE HCL 50 MG TAB PO SCH (22:21)
[2021-12-16] MEDS: ATORVASTATIN 40 MG TAB PO SCH (22:21)
[2021-12-17] VITALS: BP 111/50
[2021-12-17 02:32] VITALS: BP 111/50
[2021-12-17 04:00] VITALS: BP 145/56
[2021-12-17] MEDS: LEVOTHYROXINE SODIUM 75 MCG TAB PO SCH (05:07)
[2021-12-17] MEDS: INSULIN LISPRO 100 UNIT/1 ML 3ML VIAL SQ SCH ×2 (07:30→11:30)
[2021-12-17 08:17] VITALS: BP 131/60
[2021-12-17 08:53] VITALS: BP 131/60
[2021-12-17 11:10] VITALS: BP 120/53
[2021-12-17] MEDS ORDERED: VITAMIN D310 MC1 PO (11:25)
[2021-12-17] MEDS ORDERED: FOSAMAX70 MG PO (11:25)
[2021-12-17] MEDS ORDERED: CALCIUM500 MG PO (11:25)
[2021-12-17] MEDS: SITAGLIPTIN 100 MG TAB PO SCH (11:26)
[2021-12-17] MEDS: METFORMIN HCL 500 MG TAB PO SCH (11:26)
[2021-12-17] MEDS: GLIMEPIRIDE 2 MG TAB PO SCH (11:27)
[2021-12-17] MEDS: FERROUS SULFATE 325 MG TAB PO SCH (11:27)
[2021-12-17] MEDS: GABAPENTIN 100 MG CAP PO SCH (11:29)
[2021-12-17] MEDS: LISINOPRIL 10 MG TAB PO SCH (11:29)
[2021-12-17] MEDS: METOPROLOL TARTRATE 25 MG TAB PO SCH (11:29)
[2021-12-17] MEDS: TRAMADOL HCL 50 MG TAB PO PRN (11:30)
[2021-12-17] MEDS ORDERED: ONDANSETRON HCL 4 MG ORAL DISINTEGRATING TAB PO PRN (14:00)
== END 2021-12-17 13:57 | disposition home or self-care (01) | DRG 552 ==
LOC: ER 06:12 → MED/SURG3 09:10 → INTOOBSV 09:10 → MED/SURG3 20:50 → INTOOBSV 12-13 12:04 → OBSVTOIN 12-13 12:04
PROVIDERS: ADMIT Internal Medicine; ATTEND Internal Medicine
DX: S32.10XA Unspecified fracture of sacrum, initial encounter for closed fracture (principal); M80.88XA Other osteoporosis with current pathological fracture, vertebra(e), initial encounter for fracture; N39.0 Urinary tract infection, site not specified; S32.302A Unspecified fracture of left ilium, initial encounter for closed fracture; G89.4 Chronic pain syndrome; G89.11 Acute pain due to trauma; M41.56 Other secondary scoliosis, lumbar region; M47.892 Other spondylosis, cervical region; D64.9 Anemia, unspecified; K21.9 Gastro-esophageal reflux disease without esophagitis; E78.5 Hyperlipidemia, unspecified; E11.65 Type 2 diabetes mellitus with hyperglycemia; Z88.6 Allergy status to analgesic agent; Z88.0 Allergy status to penicillin; S32.029G Unspecified fracture of second lumbar vertebra, subsequent encounter for fracture with delayed healing; W19.XXXD Unspecified fall, subsequent encounter; M80.88XG Other osteoporosis with current pathological fracture, vertebra(e), subsequent encounter for fracture with delayed healing; W19.XXXA Unspecified fall, initial encounter; Z91.81 History of falling; Z20.822 Contact with and (suspected) exposure to COVID-19
CPT/HCPCS: 0223U; 36415; 72100; 72141; 72148; 80048; 80053; 81001; 82948; 85025; 96360; 99284; G0378; J0696; J2270; J2405; J7040